=== PATIENT | female | born 1975 | race Caucasian/White ===

== ENCOUNTER 2017-01-30 12:12 | Emergency (ER) | payer SELFPAY ==
[~2017-01-30] VITALS: Ht 162.6 cm; Wt 100.0 kg
[2017-01-30] MEDS ORDERED: SODIUM CHLORIDE 0.9% 1,000 ML IV ONE (13:36)
[2017-01-30 15:25] LABS: CLARITY URINE CLEAR (CLEAR); COLOR URINE YELLOW (YELLOW); KETONES URINE NEGATIVE (NEGATIVE); LEUKOCYTE ESTERASE URINE NEGATIVE (NEGATIVE); NITRITE URINE POSITIVE (NEGATIVE); OCCULT BLOOD URINE NEGATIVE (NEGATIVE); PROTEIN URINE NEGATIVE (NEGATIVE); SPECIFIC GRAVITY URINE 1.011 (1.005-1.030); UROBILINOGEN URINE 0.2 E.U./dL (0.2-1.0)
[2017-01-30 15:52] LABS: BASOPHILS % 0.5 % (0.0-2.0); EOSINOPHILS % 2.4 % (0.0-5.0); HEMATOCRIT. 34.6 % (36.0-48.0); HEMOGLOBIN. 11.3 g/dL (12.0-16.0); LYMPHOCYTES % 26.5 % (20.0-50.0); MEAN CORPUSCULAR HEMOGLOBIN 26.8 pg (28.0-32.0); MEAN CORPUSCULAR VOLUME 82.2 fL (81.0-99.0); MEAN PLATELET VOLUME 7.9 fl (7.4-10.4); MONOCYTES % 5.6 % (2.0-8.0); PLATELET 371 x1000/uL (130-400); RED BLOOD CELL COUNT 4.21 mill/uL (4.2-5.4); RED CELL DISTRIBUTION WIDTH 14.1 % (11.6-14.6)
[2017-01-30 15:56] LABS: CHLORIDE 107 mEq/L (98-107)
[2017-01-30] MEDS ORDERED: MORPHINE SULFATE 2 MG/ML CPJ (NOT FOR IM USE) IV ONE (16:00)
[2017-01-30 16:06] LABS: CARBON DIOXIDE 26 mEq/L (21-32); HCG SCREEN NEGATIVE
[2017-01-30 16:08] LABS: PARTIAL THROMBOPLASTIN TIME 25.4 sec (23.4-31.0); PROTHROMBIN TIME 10.7 sec (9.4-11.6)
[2017-01-30] MEDS ORDERED: IOHEXOL-300 100 ML BOTTLE ONE (17:14)
[2017-01-30] MEDS ORDERED: KETOROLAC 30MG/ML VIAL IM ONE (19:30)
[2017-01-30] MEDS ORDERED: METHOCARBAMOL 500MG TABLET PO ONE (19:30)
[2017-01-30 20:00] VITALS: BP 112/62
== END 2017-01-30 20:35 | disposition home or self-care (01) ==
LOC: ER 12:12
DX: S39.012A Strain of muscle, fascia and tendon of lower back, initial encounter (principal); R51 Headache; M54.2 Cervicalgia; R42 Dizziness and giddiness; R03.0 Elevated blood-pressure reading, without diagnosis of hypertension; V49.49XA Driver injured in collision with other motor vehicles in traffic accident, initial encounter; Y93.89 Activity, other specified; Y92.411 Interstate highway as the place of occurrence of the external cause
CPT/HCPCS: 36415; 70450; 71010; 71260; 72100; 72125; 74177; 80053; 81001; 83690; 84703; 85025; 85610; 85730; 86850; 86900; 86901; 96361; 96372; 96374; 99285; J1885; J2270; J7030; Q9967; Z7610

== ENCOUNTER 2017-05-05 18:14 | Emergency (ER) | payer SELFPAY ==
[~2017-05-05] VITALS: Ht 154.9 cm; Wt 100.0 kg
[2017-05-05] MEDS ORDERED: KETOROLAC 30MG/ML VIAL IV STA (22:17)
[2017-05-05] MEDS ORDERED: SODIUM CHLORIDE 0.9% 1,000 ML IV ONE (22:17)
[2017-05-05] MEDS ORDERED: ONDANSETRON HCL 4MG/2ML VIAL IV STA (22:17)
[2017-05-05 22:48] LABS: BASOPHILS % 0.7 % (0.0-2.0); EOSINOPHILS % 3.5 % (0.0-5.0); HEMATOCRIT. 37.9 % (36.0-48.0); HEMOGLOBIN. 12.7 g/dL (12.0-16.0); LYMPHOCYTES % 33.9 % (20.0-50.0); MEAN CORPUSCULAR HEMOGLOBIN 26.5 pg (28.0-32.0); MEAN CORPUSCULAR VOLUME 79.4 fL (81.0-99.0); MEAN PLATELET VOLUME 8.5 fl (7.4-10.4); MONOCYTES % 5.4 % (2.0-8.0); NEUTROPHILS % 56.5 % (40.0-76.0); PLATELET 342 x1000/uL (130-400); RED BLOOD CELL COUNT 4.78 mill/uL (4.2-5.4); RED CELL DISTRIBUTION WIDTH 14.3 % (11.6-14.6)
[2017-05-05 22:56] LABS: CHLORIDE 105 mEq/L (98-107)
[2017-05-06 00:38] VITALS: BP 122/65
== END 2017-05-06 00:44 | disposition home or self-care (01) ==
LOC: ER 20:15
DX: R51 Headache (principal); R11.0 Nausea
CPT/HCPCS: 36415; 70450; 80053; 81025; 85025; 93005; 96361; 96374; 96375; 99285; J1885; J2405; J7030

== ENCOUNTER 2022-05-20 13:22 | Emergency (ER) | payer MEDICAID ==
[~2022-05-20] VITALS: Ht 157.5 cm; Wt 106.0 kg
[2022-05-20 16:00] LABS: CLARITY URINE CLOUDY (CLEAR); COLOR URINE YELLOW (YELLOW); KETONES URINE NEGATIVE (NEGATIVE); LEUKOCYTE ESTERASE URINE NEGATIVE (NEGATIVE); NITRITE URINE NEGATIVE (NEGATIVE); OCCULT BLOOD URINE TRACE (NEGATIVE); PH URINE 5.5 (4.5-8.0); PROTEIN URINE TRACE (NEGATIVE); SPECIFIC GRAVITY URINE 1.021 (1.005-1.030); UROBILINOGEN URINE 0.2 E.U./dL (0.2-1.0)
[2022-05-20 18:19] LABS: BASOPHILS % 0.6 % (0.0-2.0); EOSINOPHILS % 2.8 % (0.0-5.0); HEMATOCRIT. 39.4 % (36.0-48.0); HEMOGLOBIN. 13.5 g/dL (12.0-16.0); LYMPHOCYTES % 24.5 % (20.0-50.0); MEAN CORPUSCULAR HEMOGLOBIN 28.8 pg (28.0-32.0); MEAN CORPUSCULAR VOLUME 84.1 fL (81.0-99.0); MEAN PLATELET VOLUME 8.1 fl (7.4-10.4); MONOCYTES % 5.8 % (2.0-8.0); NEUTROPHILS % 66.3 % (40.0-76.0); PLATELET 401 x1000/uL (130-400); RED BLOOD CELL COUNT 4.69 mill/uL (4.2-5.4); RED CELL DISTRIBUTION WIDTH 13.6 % (11.6-14.6)
[2022-05-20 18:26] LABS: CHLORIDE 106 mEq/L (98-107)
[2022-05-20] MEDS ORDERED: SUMATRIPTAN SUCCINATE 6MG/0.5ML VIAL SUBCUT ONE (22:30)
[2022-05-20] MEDS ORDERED: HYDRALAZINE HCL 25MG TABLET PO ONE (22:30)
[2022-05-20] MEDS ORDERED: MORPHINE SULFATE 4 MG/ML CPJ (NOT FOR IM USE) IV ONE (22:30)
[2022-05-20] MEDS ORDERED: ASPIRIN 325MG EC TABLET PO ONE (22:30)
[2022-05-20] MEDS ORDERED: ONDANSETRON HCL 4MG/2ML INJ IV ONE (22:30)
[2022-05-21] MEDS ORDERED: TOPUD MT (00:40)
[2022-05-21] MEDS ORDERED: ONDA4TAB50 MT (00:40)
[2022-05-21] MEDS ORDERED: IMIT25 MT (00:40)
[2022-05-21] MEDS ORDERED: LISI10TA26 MT (00:40)
[2022-05-21 00:41] VITALS: BP 142/53
== END 2022-05-21 00:50 | disposition home or self-care (01) ==
LOC: ER 13:33
DX: R68.89 Other general symptoms and signs (principal)
CPT/HCPCS: 36415; 80053; 81003; 85025; 96372; 96374; 96375; 99284; J2270; J2405; J3030; Z7610